=== PATIENT | male | born 1945 | race Caucasian/White ===

== ENCOUNTER 2019-11-17 13:06 | Outpatient (CLI) | payer MEDICARE, OTHER ==
[2019-11-17 13:39] LABS: ALBUMIN 4.2 g/dL (3.2-5.5); BILIRUBIN,DIRECT 0.1 mg/dL (0.1-0.5); BILIRUBIN,TOTAL 0.9 mg/dL (0.2-1.0); TOTAL PROTEIN 7.9 g/dL (6.7-8.2)
== END 2019-11-17 13:07 | disposition home or self-care (01) ==
LOC: LAB 13:06
PROVIDERS: ATTEND Internal Medicine Pulmonary Disease
DX: J84.9 Interstitial pulmonary disease, unspecified (principal); J84.112 Idiopathic pulmonary fibrosis; Z79.899 Other long term (current) drug therapy
CPT/HCPCS: 36415; 80076

== ENCOUNTER 2021-01-23 13:58 | Outpatient (CLI) | payer MEDICARE, OTHER | END 2021-01-23 13:59 | disposition home or self-care (01) | LOC: LAB 13:58 | PROVIDERS: ATTEND Internal Medicine Pulmonary Disease | DX: Z01.812 Encounter for preprocedural laboratory examination (principal); Z20.822 Contact with and (suspected) exposure to COVID-19 ==

== ENCOUNTER 2022-01-05 08:08 | Outpatient (CLI) | payer MEDICARE, OTHER | END 2022-01-05 08:09 | disposition critical access hospital (66) | LOC: EMS 08:08 | DX: R53.1 Weakness (principal) | CPT/HCPCS: A0425; A0427 ==

== ENCOUNTER 2022-01-05 08:31 | Emergency (ER) | payer MEDICARE, OTHER ==
--- NOTE | 2022-01-05 08:44 | ED Physician Documentation ---
PD HPI DYSPNEA - Stated complaint Stated Complaint: WEAKNESS - History obtained from History obtained from: Patient, Family (), EMS - History of Present Illness Timing - onset: How many days ago (Medics/patient state increased general weak ness the past few days to week.) Timing - onset during: Light activity Timing - duration: Days, Weeks (1) Timing - details: Gradual onset, Still present, Waxing and waning Inciting event(s): URI (he states his chronic cough is more consistent recently. Nonproductivwe.). No: Out of meds Improved by: Rest Worsened by: Exertion, Coughing. No: Laying flat Associated symptoms: Cough. No: Fever, Wheezing, Chest pain / discomfort, Bilateral edema Similar symptoms before: Has not had sx before (general decline over months or more, per , but notable increased general weakness for several days. He slumped to floor last evening and could not get up. He did not want EMS. covered him with blankets. She called EMS this morning when he still could not get up.) Recently seen: Not recently seen Review of Systems Constitutional: reports: Myalgias. denies: Fever, Chills Nose: reports: Rhinorrhea / runny nose. denies: Congestion Throat: denies: Sore throat Cardiac: denies: Chest pain / pressure Respiratory: reports: Dyspnea, Cough GI: reports: Nausea (less appetite for several days). denies: Abdominal Pain, Vomiting, Diarrhea : denies: Dysuria, Incontinent Skin: denies: Abrasion (s), Laceration (s) Neurologic: reports: Generalized weakness (having increased weakness over baseline the past week or so. Some cough and malaise for several days. Home COVID test negative and feeling okay. He slumped to floor last night and gave blanket/etc, and patient allowed her to call for Lift Assist this morning when he still could not get up.). denies: Focal weakness, Numbness PD PAST MEDICAL HISTORY - Past Medical History Cardiovascular: None Respiratory: Other (pulmonary fibrosis) Neuro: Dementia Endocrine/Autoimmune: None GI: None Derm: None - Present Medications Home Medications: Ambulatory Orders Medication Instructions Recorded Confirmed Albuterol Sulf [Ventolin Hfa 2 - 3 puffs INH QID 10 Days #1 gm 01/05/22 Inhaler] Amoxicillin 500 mg PO TID #15 cap 01/05/22 dexAMETHasone [Decadron] 4 mg PO DAILY #5 tablet 01/05/22 - Allergies Allergies/Adverse Reactions: Allergies Allergy/AdvReac Type Severity Reaction Status Date / Time codeine Allergy Unknown Verified 01/05/22 08:45 oxycodone Allergy Unknown Verified 01/05/22 08:45 - Living Situation Living Situation: reports: With spouse/s.o. Living Arrangement: reports: At home, Other (typically uses walker. ) - Social History Does the pt smoke?: No Does the pt drink ETOH?: No Does the pt have substance abuse?: No PD ED PE NORMAL - Vitals Vital signs reviewed: Yes - General General: Alert and oriented X 3, No acute distress, Well developed/nourished - HEENT HEENT: Atraumatic - Neck Neck: Supple, no meningeal sign, No adenopathy - Cardiac Cardiac: RRR, No murmur - Respiratory Respiratory: No respiratory distress. No: Clear bilaterally (some fine crackles diffusely, mild (c/w fibrosis). No wheezes per se. Occasional cough. ) - Abdomen Abdomen: Soft, Non tender - Derm Derm: Normal color, Warm and dry - Extremities Extremities: No tenderness to palpate, No edema, No calf tenderness / cord - Neuro Neuro: Alert and oriented X 3, No motor deficit, Normal speech Results - Vitals Vitals: Vital Signs - 24 hr 01/05/22 01/05/22 01/05/22 08:38 10:22 10:48 Temperature 37.2 C Heart Rate 88 88 79 Respiratory 20 21 16 Rate Blood Pressure 137/100 H 113/76 O2 Saturation 95 94 01/05/22 13:56 Temperature 37.2 C Heart Rate 64 Respiratory 18 Rate Blood Pressure 116/73 O2 Saturation 97 Oxygen O2 Source Room air - EKG (time done) 08:49 Rate: Rate (enter#) (78) Rhythm: NSR [place]: Normal Intervals: Normal MD QRS: Normal Ischemia: Normal ST segments. No: ST elevation c/w ischemia, ST depression Compare to prior EKG: Old EKG unavailable - Labs Labs: Laboratory Tests 01/05/22 01/05/22 01/05/22 08:39 08:57 09:02 WBC 7.9 RBC 4.49 L Hgb 15.1 Hct 41.8 L MCV 93.1 MCH 33.6 H MCHC 36.1 H RDW 11.9 L Plt Count 259 MPV 8.4 Neut # (Auto) 6.2 Lymph # (Auto) 0.5 L [place] # (Auto) 1.1 H Eos # (Auto) 0.0 Baso # (Auto) 0.0 Absolute Nucleated RBC 0.00 Nucleated RBC % 0.0 Sodium Potassium Chloride Carbon Dioxide Anion Gap BUN Creatinine Estimated GFR (MDRD) Glucose Calcium Magnesium Total Bilirubin AST ALT Alkaline Phosphatase Total Creatine Kinase Troponin I High Sens B-Natriuretic Peptide Total Protein Albumin Globulin Albumin/Globulin Ratio Lipase TSH Urine Color DARK YELLOW Urine Clarity CLEAR Urine pH 6.0 Ur Specific [place] >=1.030 H Urine Protein TRACE Urine Glucose (UA) NEGATIVE Urine Ketones 15 H Urine Occult Blood NEGATIVE Urine Nitrite NEGATIVE Urine Bilirubin NEGATIVE Urine Urobilinogen 0.2 (NORMAL) Ur Leukocyte Esterase NEGATIVE Ur Microscopic Review NOT INDICATED Urine Culture Comments NOT INDICATED Nasal Adenovirus (PCR) NOT DETECTED Nasal B. parapertussis DNA (PCR) NOT DETECTED Nasal Coronavir 229E PCR NOT DETECTED Nasal Coronavir HKU1 PCR NOT DETECTED Nasal Coronavir NL63 PCR NOT DETECTED Nasal Coronavir OC43 PCR NOT DETECTED Nasal Enterovir/Rhinovir PCR NOT DETECTED Nasal Influenza B PCR NOT DETECTED Nasal Influenza A PCR NOT DETECTED Nasal Parainfluen 1 PCR NOT DETECTED Nasal Parainfluen 2 PCR NOT DETECTED Nasal Parainfluen 3 PCR NOT DETECTED Nasal Parainfluen 4 PCR NOT DETECTED Nasal RSV (PCR) NOT DETECTED Nasal B.pertussis DNA PCR NOT DETECTED Nasal C.pneumoniae (PCR) NOT DETECTED Amanuel Human Metapneumo PCR NOT DETECTED Nasal M.pneumoniae (PCR) NOT DETECTED Nasal SARS-CoV-2 (PCR) DETECTED A 01/05/22 01/05/22 01/05/22 09:02 09:02 09:02 WBC RBC Hgb Hct MCV MCH MCHC RDW Plt Count MPV Neut # (Auto) Lymph # (Auto) [place] # (Auto) Eos # (Auto) Baso # (Auto) Absolute Nucleated RBC Nucleated RBC % Sodium 133 L Potassium 4.0 Chloride 99 L Carbon Dioxide 23 Anion Gap 11.0 BUN 17 Creatinine 0.9 Estimated GFR (MDRD) 82 L Glucose 106 H Calcium 9.1 Magnesium 1.7 Total Bilirubin 0.9 AST 37 ALT 20 Alkaline Phosphatase 47 Total Creatine Kinase 766 H Troponin I High Sens 6.7 B-Natriuretic Peptide 47 Total Protein 7.3 Albumin 4.0 Globulin 3.3 Albumin/Globulin Ratio 1.2 Lipase 31 TSH Urine Color Urine Clarity Urine pH Ur Specific [place] Urine Protein Urine Glucose (UA) Urine Ketones Urine Occult Blood Urine Nitrite Urine Bilirubin Urine Urobilinogen Ur Leukocyte Esterase Ur Microscopic Review Urine Culture Comments Nasal Adenovirus (PCR) Nasal B. parapertussis DNA (PCR) Nasal Coronavir 229E PCR Nasal Coronavir HKU1 PCR Nasal Coronavir NL63 PCR Nasal Coronavir OC43 PCR Nasal Enterovir/Rhinovir PCR Nasal Influenza B PCR Nasal Influenza A PCR Nasal Parainfluen 1 PCR Nasal Parainfluen 2 PCR Nasal Parainfluen 3 PCR Nasal Parainfluen 4 PCR Nasal RSV (PCR) Nasal B.pertussis DNA PCR Nasal C.pneumoniae (PCR) Amanuel Human Metapneumo PCR Nasal M.pneumoniae (PCR) Nasal SARS-CoV-2 (PCR) 01/05/22 09:02 WBC RBC Hgb Hct MCV MCH MCHC RDW Plt Count MPV Neut # (Auto) Lymph # (Auto) [place] # (Auto) Eos # (Auto) Baso # (Auto) Absolute Nucleated RBC Nucleated RBC % Sodium Potassium Chloride Carbon Dioxide Anion Gap BUN Creatinine Estimated GFR (MDRD) Glucose Calcium Magnesium Total Bilirubin AST ALT Alkaline Phosphatase Total Creatine Kinase Troponin I High Sens B-Natriuretic Peptide Total Protein Albumin Globulin Albumin/Globulin Ratio Lipase TSH 1.73 Urine Color Urine Clarity Urine pH Ur Specific [place] Urine Protein Urine Glucose (UA) Urine Ketones Urine Occult Blood Urine Nitrite Urine Bilirubin Urine Urobilinogen Ur Leukocyte Esterase Ur Microscopic Review Urine Culture Comments Nasal Adenovirus (PCR) Nasal B. parapertussis DNA (PCR) Nasal Coronavir 229E PCR Nasal Coronavir HKU1 PCR Nasal Coronavir NL63 PCR Nasal Coronavir OC43 PCR Nasal Enterovir/Rhinovir PCR Nasal Influenza B PCR Nasal Influenza A PCR Nasal Parainfluen 1 PCR Nasal Parainfluen 2 PCR Nasal Parainfluen 3 PCR Nasal Parainfluen 4 PCR Nasal RSV (PCR) Nasal B.pertussis DNA PCR Nasal C.pneumoniae (PCR) Amanuel Human Metapneumo PCR Nasal M.pneumoniae (PCR) Nasal SARS-CoV-2 (PCR) - Rads (name of study) chest xray Radiology: Prelim report reviewed (basilar and perihilar infiltrates, consider aspiration or pneumonia. ), See rad report PD MEDICAL DECISION MAKING - ED course Complexity details: reviewed results (He has infiltrate on CXR so consider pneumonia. He tests positive for COVID, so can treat for that. He was given IV fluids. He was able to get up to commode with mild assistance. His felt she would be able to take care of him at home, with their daughter coming from [place] tomorrow to help. ), re-evaluated patient, considered differential (geneeral weakness. Mild cough. Can look for CHF/pneumonia/exac fibrosis, or general issues such as electrolytes, UTI, DC.), d/w patient, d/w family () Departure - Departure Disposition: Home, Self Care Clinical Impression: Generalized weakness, COVID-19, Pulmonary fibrosis Pneumonia Qualifiers: Pneumonia type: due to unspecified organism Laterality: right Lung location: lower lobe of lung Qualified Code(s): J18.9 - Pneumonia, unspecified organism Condition: Stable Record reviewed to determine appropriate education?: Yes Prescriptions: Amoxicillin 500 mg PO TID #15 cap dexAMETHasone [Decadron] 4 mg PO DAILY #5 tablet Albuterol Sulf [Ventolin Hfa Inhaler] 2 - 3 puffs INH QID 10 Days #1 gm Comments: You likely were somewhat under hydrated. You were given some extra fluids here by IV. Your respiratory viral panel tested positive for COVID. I presume this is accounting for your general weakness and increased cough over the last several days. Small frequent fluids to maintain good hydration. Your chest x-ray does show which shows suggestion of a pneumonia. This may relate to COVID but I would also be concern for bacterial infection as well. I would treat you with an albuterol inhaler 2 to 3 puffs 4 times a day as well as Decadron steroid for inflammation of the airways given your history of the p ulmonary fibrosis. I know the inhaler has not helped in the past but it may be useful in the setting of an acute infectious process. Amoxicillin 3 times daily for 5 days for potential bacterial component. Continue your other usual medicines. Add Paxlovid as directed in the packet given to you. This will help try to minimize the symptoms associated with the COVID virus. Follow-up with the resources suggested by the social work regarding bedside commode and wheelchair for short-term use while you are trying to improve from the acute illness. Return as needed. I transmitted your prescriptions to your [facility] pharmacy. Discharge Date/Time: 01/05/22 13:56
[2022-01-05] MEDS ORDERED: SODIUM CHLORIDE 0.9% 500 ML IV STA ×2 (08:48→10:32)
[2022-01-05 08:53] LABS: BILIRUBIN,URINE NEGATIVE (NEGATIVE); GLUCOSE, URINE (UA) NEGATIVE (NEGATIVE); KETONES,URINE (UA) 15 mg/dL (NEGATIVE); LEUKOCYTE ESTERASE, URINE NEGATIVE (NEGATIVE); NITRITE,URINE NEGATIVE (NEGATIVE); OCCULT BLOOD,URINE NEGATIVE (NEGATIVE); PROTEIN,URINE TRACE mg/dL (NEGATIVE); UROBILINOGEN,URINE 0.2 (NORMAL) E.U./dL (NORMAL)
[2022-01-05 08:56] LABS: CLARITY,URINE CLEAR (CLEAR)
[2022-01-05 09:07] LABS: BASOPHILS % (AUTO) 0.5 %; EOSINOPHILS % (AUTO) 0.1 %; HCT - HEMATOCRIT 41.8 % (42.0-52.0); HGB - HEMOGLOBIN 15.1 g/dL (14.0-18.0); LYMPHOCYTES # (AUTO) 0.5 10^3/uL (1.5-3.5); LYMPHOCYTES % (AUTO) 6.5 %; MEAN CORPUSCULAR HEMOGLOBIN 33.6 pg (27.0-31.0); MEAN CORPUSCULAR HGB CONC 36.1 g/dL (32.0-36.0); MEAN CORPUSCULAR VOLUME 93.1 fL (80.0-94.0); MEAN PLATELET VOLUME 8.4 fL (7.4-11.4); MONOCYTES # (AUTO) 1.1 10^3/uL (0.0-1.0); NEUTROPHILS # (AUTO) 6.2 10^3/uL (1.5-6.6); NEUTROPHILS % (AUTO) 78.5 %; PLT - PLATELET COUNT 259 10^3/uL (130-450); RED BLOOD COUNT 4.49 10^6/uL (4.70-6.10); RED CELL DISTRIBUTION WIDTH 11.9 % (12.0-15.0); WHITE BLOOD COUNT 7.9 x10^3/uL (4.8-10.8)
--- NOTE | 2022-01-05 09:10 | XRAY Report ---
PROCEDURE: Chest 1 View X-Ray INDICATIONS: chest pain TECHNIQUE: One view of the chest was acquired. COMPARISON: None FINDINGS: Surgical changes and devices: None. Lungs and pleura: Senescent lung markings and basal and peribronchial opacities. No pleural effusions or pneumothorax. Mediastinum: Mediastinal contours appear normal. Heart size is normal. Bones and chest wall: No suspicious bony lesions. Overlying soft tissues appear unremarkable. IMPRESSION: Mild basilar and peribronchial opacities could represent infection or aspiration, likely with superim posed atelectasis. Follow-up imaging is suggested to document resolution. Reviewed by: Chito Alonso MD on 01/05/2022 9:09 AM PDT Approved by: Chito Alonso MD on 01/05/2022 9:09 AM PDT Station ID: [id number]
[2022-01-05 09:23] LABS: ALBUMIN/GLOBULIN RATIO 1.2 (1.0-2.2); BILIRUBIN,TOTAL 0.9 mg/dL (0.2-1.0); CALCIUM 9.1 mg/dL (8.5-10.3); CREATININE 0.9 mg/dL (0.6-1.2); MAGNESIUM 1.7 mg/dL (1.7-2.8); TOTAL PROTEIN 7.3 g/dL (6.7-8.2)
[2022-01-05] MEDS ORDERED: ALBUTEROL 1 PUFF INH STA (09:30)
[2022-01-05] MEDS ORDERED: cefTRIAXone 1 GM VIAL IVP STA (09:30)
[2022-01-05 10:11] LABS: B. PARAPERTUSSIS- RESP PCR PAN NOT DETECTED; B. PERTUSSIS- RESP PCR PANEL NOT DETECTED; C. PNEUMONIAE- RESP PCR PANEL NOT DETECTED; CORONAVIRUS 229E-RESP PCR NOT DETECTED; CORONAVIRUS HKU1-RESP PCR NOT DETECTED; CORONAVIRUS NL63-RESP PCR NOT DETECTED; CORONAVIRUS OC43-RESP PCR NOT DETECTED; HUMAN METAPNEUMOVIRUS NOT DETECTED; INFLUENZA A- RESP PCR PANEL NOT DETECTED; INFLUENZA B - RESP PCR PANEL NOT DETECTED; M. PNEUMONIAE- RESP PCR PANEL NOT DETECTED; PARAINFLUENZA VIRUS 1 NOT DETECTED; PARAINFLUENZA VIRUS 2 NOT DETECTED; PARAINFLUENZA VIRUS 3 NOT DETECTED; PARAINFLUENZA VIRUS 4 NOT DETECTED; RHINOVIRUS/ENTEROVIRUS NOT DETECTED; RSV- RESP PCR PANEL NOT DETECTED
[2022-01-05 10:13] LABS: SARS-CoV-2 -RESP PCR PANEL DETECTED
[2022-01-05] MEDS ORDERED: NIRMATRELVIR/RITONAVIR PREPACK PO STA (11:36)
[2022-01-05 13:57] VITALS: BP 116/73
== END 2022-01-05 13:56 | disposition home or self-care (01) ==
LOC: EDUNIT# → ED 08:31
DX: U07.1 COVID-19 (principal); J84.10 Pulmonary fibrosis, unspecified
CPT/HCPCS: 36415; 71045; 80053; 81003; 82550; 83690; 83735; 83880; 84443; 84484; 85025; 87633; 93005; 94664; 96361; 96374; 99283; 99284; J3490; 81001; 87086

== ENCOUNTER 2022-06-14 07:00 | Outpatient (CLI) | payer MEDICARE, OTHER | END 2022-06-14 23:59 | disposition home or self-care (01) | LOC: LAB.S 07:00 | PROVIDERS: ATTEND Nurse Practitioner | DX: N39.0 Urinary tract infection, site not specified (principal) | CPT/HCPCS: 87086; 87181 ==